=== PATIENT | male | born 1980 | race Caucasian/White ===

== ENCOUNTER 2016-12-08 18:16 | Emergency (ER) | payer MEDICARE ==
[~2016-12-08 18:16] MED LIST: OXYC5TAB72 PO; PARO40TA47 PO; POLY17PO6 PO; SULF1TAB7 PO
[2016-12-08 18:36] VITALS: BP 119/78; PULSE 103; RESP 16; O2SAT 95
--- NOTE | 2016-12-08 21:01 | ED.REPORT ---
HPI-General Illness Date of Service Dec 08, 2016 ED Provider: Dr. Montrell Fuentes M.D. A 36 year old male with a medical history including Crohn's disease, SBO, ulcerative colitis, and methamphetamine use s/p multiple abdominal surgeries including hernia repair with mesh placement presents to the ED with abdominal pain onset a couple of days ago while lifting a freezer. The patient also reports a new abdominal wound at a previous surgical site with intermittent drainage. He can feel a sharp, palpable mass just below the wound, which he believes is his hernia mesh. Nursing Notes Stated Complaint: HERNIA MESH DISCOMFORT Chief Complaint: Skin Rash/Abscess Nursing Notes Reviewed: Yes Allergies: Coded Allergies: morphine (Verified Allergy, Intermediate, Rash, 06/07/16) RASH, NAUSEA Scheduled Paroxetine (Paxil) 40 Mg Tablet 40 MG PO HS Polyethylene Glycol 3350 (Miralax) 17 Gm Powd.pack 17 GM PO DAILY Sulfamethoxazole/Trimeth 800-160 mg (Bactrim DS) 1 Each Tablet 1 TABLET PO BID Scheduled PRN oxyCODONE (oxyCODONE) 5 Mg Tablet 2.5-5 MG PO Q4H PRN PRN For Moderate Pain General Time Seen by MD: 21:01 Chief Complaint Abdominal pain Hx Obtained From: Patient Arrived By: Walk-in Sudden in Onset?: Yes Onset Occurred: 2 days ago ("a couple") Symptom Duration: Since onset Location: : Abdomen Quality: Painful Severity: Current: Moderate Severity: Maximum: Moderate Associated with: Reports: Discharge, Denies: Fever Pertinent Negative: Relieved by nothing Context Related History: Reports Hernia, Reports Psychiatric history Recent Healthcare: No recent doctor visit Similar Sx Previous: No Past Medical History Past Medical History Notes: Seen in ED 05/30/16 for substance abuse (methamphetamines) Seen 04/25/16 in ED for incisional hernia (see CT results) Seen in ED April 07, and 2015 for abd pain, crohns Diagnosis cutaneous phlegmon April 10, discharged on Cipro and Flagyl On the had normal labs, had referral to surgery to be seen April 23 CT Scam 04/07/16 nonspecific thickening of residual sigmoid colon Admitted March 11-2015 for partial small bowel obstruction, chronic abdominal pain, scrotal cellulitis and history of Crohn's - with a small bowel follow-through Gastrografin enema with no evidence of stricturing or 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 Surgical exploration on 06/08 and 08/08 confirmed doesn't have enteric fissula. Past Surgical History Lysis of adhesions Colectomy at age 13 Several other abdominal surgeries "x9": exact details are unknown Hernia repair with mesh at [place] - most recent surgery at the in 2013 Rotator cuff Left thumb fusion for recurrent dislocation Vasectomy Smoking History Current Every Day Smoker Social History Alcohol Use: Denies alcohol use Drug Use: Meth Other Social History: , Local resident Ambulatory Status Independent Review of Systems + Abdominal wound with drainage, palpable abdominal mass Full Review of Systems Constitutional: Denies: Fever GI: Reports: Abdominal pain Complete sys rev & neg: except as marked. Physical Exam Vital Signs Vital Signs Date Time Temp Pulse Resp B/P Pulse Ox O2 Delivery O2 Flow Rate FiO2 12/08/16 18:36 36.6 103 16 119/78 95 Room Air Initial VS: Reviewed Head / Eyes: Atraumatic, Normocephalic ENT: Conjunctiva normal, No scleral icterus Neck: Supple, Full range of motion Skin: Warm, Dry Neurologic: Alert, Oriented, Nonfocal Psychiatric: Mood/affect normal, Behavior normal, Normal thought content General/Constitutional: Awake, Alert ABDOMEN/GI: Anterior abdominal wall surgical scar at midline, another scar above umbilicus transverse to left side. Small punctate lesion at the juncture of these scars, with firm palpable mass in the middle. Area is tender without active drainage, erythema, or induration. abd otherwise nontender Re-Eval/Medical Decision Source of Hx: Old records Time of Eval: 21:00 Patient Status: Condition improved Re-Evaluation/Progress Note: Discussed with patient diagnosis and plan for discharge. Follow-up and return to the ER instructions given. Patient agrees with plan for care and all questions were addressed. Counseled Regarding: Diagnosis, Need for follow-up, When/why to return to ED Discharge & Departure Primary Impression: Visit for wound check Disposition: Home Discharge Condition All VS Reviewed: Yes Condition: Stable Additional Instructions: Does not appear to be infected at present. Drainage is nothing to worry about, you can apply a gauze dressing to prevent it from getting on clothes. Contacted Dr. Jaquez, your surgeon for follow up on this soon. Return if you develop redness or swelling at site. Referrals: Erica Shin MD (PCP) Scribe Attestation Portions of this note were transcribed by Milagro Esquivel. I, Dr. Fuentes, personally performed the history, physical exam, and medical decision-making; I reviewed and confirmed the accuracy of the information in the transcribed note. Signed by: Amy Yusuf, 12/08/2016, 22:13 copies to: Erica Shin MD, Donald L MD Dec 08, 2016 21:01 MILAGRO ESQUIVEL Dec 08, 2016 21:16
== END 2016-12-08 21:27 ==
LOC: SED 18:16
DX: R10.9 Unspecified abdominal pain (principal); X50.0XXA Overexertion from strenuous movement or load, initial encounter; Y93.89 Activity, other specified; Y99.8 Other external cause status; Y92.9 Unspecified place or not applicable; F17.200 Nicotine dependence, unspecified, uncomplicated; F15.10 Other stimulant abuse, uncomplicated; Z87.19 Personal history of other diseases of the digestive system; Z88.5 Allergy status to narcotic agent

== ENCOUNTER 2017-04-06 12:15 | Emergency (ER) | payer MEDICARE ==
[~2017-04-06] VITALS: Ht 188 cm; Wt 113.6 kg
[2017-04-06 12:22] VITALS: BP 125/81; PULSE 104; RESP 18; O2SAT 97
--- NOTE | 2017-04-06 13:51 | ED.REPORT ---
HPI-Abd Pain M Under 41 Date of Service Apr 06, 2017 ED Provider: Danika Crandall History of Present Illness: states has a bowel obstruction, started yesterday. primary care is shan. positive nausea and vomiting yesterday. no diarrhea. last bm tuesday. has had multiple sbo. 05/02 pain Nursing Notes Stated Complaint: ABDOMINAL PAIN Chief Complaint: Male Abdominal Pain Nursing Notes Reviewed: Yes Allergies: Coded Allergies: morphine (Verified Allergy, Intermediate, Rash, 06/07/16) RASH, NAUSEA Scheduled Paroxetine (Paxil) 40 Mg Tablet 40 MG PO HS General Time Seen by MD: 13:37 Chief Complaint Abdominal pain Hx Obtained From: Patient Sudden in Onset?: No Onset Occurred: Yesterday Symptom Duration: Since onset Severity: Current: Pain level 7 out of 10 Past Medical History Past Medical History Notes: Seen in ED 05/30/16 for substance abuse (methamphetamines) Seen 04/25/16 in ED for incisional hernia (see CT results) Seen in ED April 07, , and 2015 for abd pain, crohns Diagnosis cutaneous phlegmon April 10, discharged on Cipro and Flagyl On the had normal labs, had referral to surgery to be seen April 23 CT Scam 04/07/16 nonspecific thickening of residual sigmoid colon Admitted March 11-2015 for partial small bowel obstruction, chronic abdominal pain, scrotal cellulitis and history of Crohn's - with a small bowel follow-through Gastrografin enema with no evidence of stricturing or active 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 Surgical exploration on 06/08 and 08/08 confirmed doesn't have enteric fissula. 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, no work or school on disability 04/06/2017 Ambulatory Status Independent Review of Systems Basic Review of Systems Eyes: Vision NL, No discharge Skin: No bruising, No rash, No itch Psychiatric: Normal thought content Physical Exam Initial Vital Signs Vital Signs (First) Date Time Temp Pulse Resp B/P Pulse Ox O2 Delivery O2 Flow Rate FiO2 04/06/17 12:22 37.2 104 18 125/81 97 Room Air Initial VS: Reviewed, Vital signs normal Head / Eyes: Atraumatic, Normocephalic, PERRL ENT: Mucous membranes moist, Conjunctiva normal, No scleral icterus Neck: Supple, Non-tender, Full range of motion Lymphatic: No lymphadenopathy Extremities: Vascular intact, Neuro intact, No swelling, No tenderness Skin: Warm, Dry, No cyanosis Neurologic: Alert, Oriented, Nonfocal Psychiatric: Mood/affect normal, Behavior normal, Normal thought content General/Constitutional: Awake, Alert, No acute distress, Well appearing, Well developed, Well hydrated Respiratory / Chest: Atraumatic, Breath sounds NL, Breath sounds = bilat, No respiratory distress, No rales, No rhonchi Cardiovascular: Heart rate NL, Regular rhythm, Heart sounds NL, No gallop Abdomen: Atraumatic, Soft, No guarding, No rebound, BS normoactive, No distention Tenderness/Guarding/Rebound: Positive: Tender diffuse Back: Atraumatic, Inspection NL, Full range of motion, Painless range of motion Interpretation & Diagnostics Interpretation & Diagnostics: INDICATIONS: abd pain TECHNIQUE: After the administration of oral and intravenous contrast, 5 mm thick sections acquired from the diaphragms to the symphysis. 5 mm thick coronal and sagittal reformats were performed. For radiation dose reduction, the following was used: automated exposure control, adjustment of mA and/or kV according to patient size. COMPARISON: [facility], CT, CT ABD PELVIS W CON, 06/07/2016, 17:18. [facility], CT, CT ABD PELVIS W CON, 04/25/2016, 11:35. FINDINGS: Image quality: Diagnostic. ABDOMEN: Lung bases: Minimal scar versus atelectasis within the bilateral lung bases is present. The heart is normal in size without a pericardial effusion. Solid organs: The liver, spleen, adrenals, kidneys, and pancreas are unchanged. There is no hydronephrosis or surrounding solid organ inflammation. Peritoneum and bowel: The stomach and duodenum are unchanged. There is a small moderate-sized duodenal diverticulum involving the 2nd portion of the duodenum, which may be slightly larger on the current study. Otherwise, the imaged small bowel loops are nondilated. Postoperative changes involving the distal colon are present, unchanged. Moderate residual stool is seen within the colon. Laxity along the anterior abdominal wall is similar to prior studies. No free fluid, loculated fluid collection or free air is evident. Nodes and vessels: Numerous small mesenteric lymph nodes are identified, similar in size to the prior exam. No retroperitoneal lymph nodes are present. There is no pathologic lymphadenopathy. Aorta and inferior vena cava are normal in caliber. Bones: Image osseous structures are age-appropriate without acute fracture or suspicious osseous lesion. PELVIS: Genitourinary: Bladder wall thickness is normal. The prostate is not enlarged. Miscellaneous: No inguinal hernias or adenopathy. No free fluid, loculated fluid collection or free air is evident. Bones: No suspicious bony lesions. No acute pelvic fractures are identified. No suspicious osseous lesions are present. There mild degenerative changes involving the right hip. IMPRESSION: 1. Postoperative changes of the colon. No bowel obstruction. 2. Scattered small mesenteric lymph nodes are of doubtful significance. However, please correlate clinically to exclude the possibility of mesenteric adenitis. 3. Duodenal diverticulum is of doubtful significance. No surrounding inflammation is evident. Dictated by: Kofi Mayo M.D. on 04/06/2017 at 15:42 Approved by: Kofi Mayo M.D. on 04/06/2017 at 15:48 Lab Results Interpretation Result Diagram: 04/06/17 1330 04/06/17 1330 Test 04/06/17 13:30 04/06/17 16:15 White Blood Count 6.5th/mm3 (3.8-10.1) Red Blood Count 4.73mil/mm3 (4.40-5.80) Hemoglobin 14.7g/dL (13.8-17.2) Hematocrit 44.1% (41.0-50.0) Mean Corpuscular Volume 93.2fL (81-100) Mean Corpuscular Hemoglobin 31.1pg (27.0-35.0) Mean Corpuscular Hemoglobin Concent 33.3% (32.0-37.0) Red Cell Distribution Width 12.8% (12.3-15.4) Platelet Count 268bil/L (150-400) Neutrophils (%) (Auto) 61.1% (40-74) Lymphocytes (%) (Auto) 30.5% (14-46) Monocytes (%) (Auto) 7.0% (4-12) Eosinophils (%) (Auto) 0.9% (0-5) Basophils (%) (Auto) 0.3% (0-3) Hold Purple Top Tube Received (Received) Hold Blue Top Tube Received (Received) Sodium Level 137mEq/L (134-144) Potassium Level 4.3mEq/L (3.5-5.2) Chloride Level 100mEq/L (97-108) Carbon Dioxide Level 25mmol/L (18-29) Blood Urea Nitrogen 10mg/dL (6-20) Creatinine 1.03mg/dL (0.76-1.27) Estimat Glomerular Filtration Rate 87mL/min (>59) Glucose Level 111mg/dL (60-99) Lactic Acid Level 1.9mmol/L (0.4-2.0) Calcium Level 9.3mg/dL (8.5-10.1) Total Bilirubin 0.3mg/dL (0.0-1.2) Aspartate Amino Transf (AST/SGOT) 26U/L (0-50) Alanine Aminotransferase (ALT/SGPT) 24U/L (0-44) Alkaline Phosphatase 60U/L (25-150) Total Protein 7.2g/dL (6.4-8.4) Albumin 4.2g/dL (3.4-5.0) Hold [place] Top Tube Received (Received) Hold Little Top Tube Received (Received) Hold Urine Received (Received) Lab Results Interpretation: urine is negative, u tox positive for meth and amp X-Ray Abdominal Interpretation INDICATIONS: abd pain TECHNIQUE: One view chest and two views of the abdomen were acquired. COMPARISON: [facility], CR, XR ABD ACUTE SERIES 3VW, 06/13/2016, 9:06. [facility], CR, XR ABD ACUTE SERIES 3VW, 06/08/2016, 9:58. FINDINGS: Surgical changes and devices: None. Chest: Lungs are clear. Heart size is normal. No pleural effusions. No pneumoperitoneum. A subtle left rib deformity is unchanged since prior studies, compatible with a healed rib fracture. Minimal scarring/elevation of the left diaphragm is noted, unchanged. Abdomen: A few borderline prominent air-filled loops of small bowel are seen within the right jeffry-abdomen, demonstrating air-fluid levels. Air and stool are seen within the colon. No suspicious calcifications. The Visualized solid organ contours appear normal. IMPRESSION: 1. Right abdominal ileus. A complete bowel obstruction is not evident. If the patient's symptoms persist, followup imaging is recommended. 2. Negative chest. Dictated by: Kofi Mayo M.D. on 04/06/2017 at 14:48 Approved by: Kofi Mayo M.D. on 04/06/2017 at 14:50 Re-Eval/Medical Decision Med Decision/Clinical Course 37 year old with ongoing abd pain and polysubstance abuse presents for abd pain which he relates to SBO. X-ray does not identify any abnormalities. CT looks good, no SBO, no abscess identified. Patient provided .5 of dilaulid with request for additional pain medication in 10 to 15 minutes after medication provided. Exam is reassuring Patient Discharge & Departure Primary Impression: Abdominal pain Abdominal location: generalized Qualified Code: R10.84 - Generalized abdominal pain Disposition: Home Patient Instructions: Acute Abdominal Pain (ED) Additional Instructions: Your labs are normal. The x-ray is normal. The CT does not identify any abnormalities. Please follow with Dr. Shin for pain control. At this time, there is no sign of a small bowel obstruction or abscess formation. Can use zofran if needed for nausea. Referrals: Erica Shin MD (PCP) EDSupervising Provider for APC: Christopher Hyatt MD copies to: Erica Shin MD, Sue ARNP Apr 06, 2017 13:51
[2017-04-06] MEDS ORDERED: HYDROmorphone 0.5 mg/0.5 mL iSecure Syringe IVPUSH ONE (14:00)
[2017-04-06] MEDS ORDERED: 0.9% Sodium Chloride 1,000 ML IV ONE (14:00)
[2017-04-06 14:14] LABS: BASOPHILS % (AUTO) 0.3 % (0-3); EOSINOPHILS % (AUTO) 0.9 % (0-5); Mean Corpuscular Hemoglobin 31.1 pg (27.0-35.0); Mean Corpuscular Volume 93.2 fL (81-100); NEUTROPHILS % (AUTO) 61.1 % (40-74); Platelet Count 268 bil/L (150-400)
--- NOTE | 2017-04-06 14:51 | DRSVH ---
PROCEDURE: X-RAY ACUTE ABDOMINAL SERIES ([id number]) INDICATIONS: abd pain TECHNIQUE: One view chest and two views of the abdomen were acquired. COMPARISON: [facility], CR, XR ABD ACUTE SERIES 3VW, 06/13/2016, 9:06. [facility], CR, XR ABD ACUTE SERIES 3VW, 06/08/2016, 9:58. FINDINGS: Surgical changes and devices: None. Chest: Lungs are clear. Heart size is normal. No pleural effusions. No pneumoperitoneum. A subtl e left rib deformity is unchanged since prior studies, compatible with a healed rib fracture. Minima l scarring/elevation of the left diaphragm is noted, unchanged. Abdomen: A few borderline prominent air-filled loops of small bowel are seen within the right jeffry-ab domen, demonstrating air-fluid levels. Air and stool are seen within the colon. No suspicious calci fications. The Visualized solid organ contours appear normal. IMPRESSION: 1. Right abdominal ileus. A complete bowel obstruction is not evident. If the patient's symptoms p ersist, followup imaging is recommended. 2. Negative chest. Dictated by: Kofi Mayo M.D. on 04/06/2017 at 14:48 Approved by: Kofi Mayo M.D. on 04/06/2017 at 14:50
--- NOTE | 2017-04-06 15:50 | DRSVH ---
PROCEDURE: CT ABDOMEN AND PELVIS WITH CONTRAST ([id number]) INDICATIONS: abd pain TECHNIQUE: After the administration of oral and intravenous contrast, 5 mm thick sections acquired from the diap hragms to the symphysis. 5 mm thick coronal and sagittal reformats were performed. For radiation do se reduction, the following was used: automated exposure control, adjustment of mA and/or kV accordi ng to patient size. COMPARISON: [facility], CT, CT ABD PELVIS W CON, 06/07/2016, 17:18. [facility], CT, CT ABD PELVIS W CON, 04/25/2016, 11:35. FINDINGS: Image quality: Diagnostic. ABDOMEN: Lung bases: Minimal scar versus atelectasis within the bilateral lung bases is present. The heart is normal in size without a pericardial effusion. Solid organs: The liver, spleen, adrenals, kidneys, and pancreas are unchanged. There is no hydronep hrosis or surrounding solid organ inflammation. Peritoneum and bowel: The stomach and duodenum are unchanged. There is a small moderate-sized duoden al diverticulum involving the 2nd portion of the duodenum, which may be slightly larger on the curren t study. Otherwise, the imaged small bowel loops are nondilated. Postoperative changes involving th e distal colon are present, unchanged. Moderate residual stool is seen within the colon. Laxity hcarlie ng the anterior abdominal wall is similar to prior studies. No free fluid, loculated fluid collectio n or free air is evident. Nodes and vessels: Numerous small mesenteric lymph nodes are identified, similar in size to the prior exam. No retroperitoneal lymph nodes are present. There is no pathologic lymphadenopathy. Aorta a nd inferior vena cava are normal in caliber. Bones: Image osseous structures are age-appropriate without acute fracture or suspicious osseous lesi on. PELVIS: Genitourinary: Bladder wall thickness is normal. The prostate is not enlarged. Miscellaneous: No inguinal hernias or adenopathy. No free fluid, loculated fluid collection or free air is evident. Bones: No suspicious bony lesions. No acute pelvic fractures are identified. No suspicious osseous lesions are present. There mild degenerative changes involving the right hip. IMPRESSION: 1. Postoperative changes of the colon. No bowel obstruction. 2. Scattered small mesenteric lymph nodes are of doubtful significance. However, please correlate c linically to exclude the possibility of mesenteric adenitis. 3. Duodenal diverticulum is of doubtful significance. No surrounding inflammation is evident. Dictated by: Kofi Mayo M.D. on 04/06/2017 at 15:42 Approved by: Kofi Mayo M.D. on 04/06/2017 at 15:48
[2017-04-06 15:58] VITALS: BP 108/62; PULSE 85; RESP 15; O2SAT 99
[2017-04-06 16:18] VITALS: BP 108/62; PULSE 85; RESP 15; O2SAT 99
== END 2017-04-06 16:19 | disposition home or self-care (01) ==
LOC: EDUNIT# 12:15 → SED 12:15 → EDBD 12:15 → SED 16:19
DX: R10.84 Generalized abdominal pain (principal); F17.210 Nicotine dependence, cigarettes, uncomplicated; F15.10 Other stimulant abuse, uncomplicated; F41.9 Anxiety disorder, unspecified; Z87.19 Personal history of other diseases of the digestive system; Z88.5 Allergy status to narcotic agent
CPT/HCPCS: 36415; 74022; 74177; 80053; 83605; 85025; 96374; 96375; 99285; J1170; J1885; J7030; Q9967

== ENCOUNTER 2017-04-13 12:58 | Emergency (ER) | payer MEDICARE ==
[~2017-04-13] VITALS: Ht 188 cm; Wt 113.6 kg
[~2017-04-13 12:58] MED LIST changes: -OXYC5TAB72 PO; -POLY17PO6 PO; -SULF1TAB7 PO
[2017-04-13 13:28] VITALS: BP 121/77; PULSE 90; RESP 16; O2SAT 97
--- NOTE | 2017-04-13 14:30 | ED.REPORT ---
HPI-Rash / Abscess Date of Service Apr 13, 2017 ED Provider: David Matthew PA-C Michelle is a 37-year-old male without pertinent medical history presenting for a chief complaint of a abscess on the top of his head. Patient states is been present off-and-on for years. States that typically responds well to Bactrim. He has not had it drained previously. Complains of pain and tenderness. Nursing Notes Stated Complaint: POSS INFECTION Chief Complaint: Skin Rash/Abscess Nursing Notes Reviewed: Yes Allergies: Coded Allergies: morphine (Verified Allergy, Intermediate, Rash, 04/13/17) RASH, NAUSEA Scheduled Paroxetine (Paxil) 40 Mg Tablet 40 MG PO HS General Time Seen by MD: 14:20 Chief Complaint Abscess Past Medical History Past Medical History Notes: Seen in ED 05/30/16 for substance abuse (methamphetamines) Seen 04/25/16 in ED for incisional hernia (see CT results) Seen in ED April 07, , and 2015 for abd pain, crohns Diagnosis cutaneous phlegmon April 10, discharged on Cipro and Flagyl On the had normal labs, had referral to surgery to be seen April 23 CT Scam 04/07/16 nonspecific thickening of residual sigmoid colon Admitted March 11-2015 for partial small bowel obstruction, chronic abdominal pain, scrotal cellulitis and history of Crohn's - with a small bowel follow-through Gastrografin enema with no evidence of stricturing or active 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 Montrell Mann Past Medical History Crohn's disease Small bowel obstruction h/o ulcerative colitis nephrolithiasis Hernia -murmur since arthritis depression and anxiety Chronically draining abdominal wall repair 08/05/16. Surgical exploration on 06/08 and 08/08 confirmed doesn't have enteric fissula. Past Surgical History Lysis of adhesions Colectomy at age 13 Several other abdominal surgeries "x9": exact details are unknown Hernia repair with mesh at [place] - most recent surgery at the in 2013 Rotator cuff Left thumb fusion for recurrent dislocation Vasectomy Smoking History Current Every Day Smoker Social History Alcohol Use: Denies alcohol use Drug Use: Meth Other Social History: , Local resident Occupation lives by self, no work or school on disability 04/06/2017 Ambulatory Status Independent Review of Systems Review of Systems Note: Negative unless stated otherwise in history of present illness Physical Exam General: Well appearing, well developed, well nourished, no acute distress. Head: 2 cm area of swelling, tenderness, alopecia with fluctuance near the crown of the scalp. No associated cellulitis. Atraumatic, normocephalic. Eyes: No scleral icterus or injection. No discharge. Vision grossly intact. ENT: Voice clear, hearing grossly intact. Respiratory: No respiratory distress, no increased work of breathing. Speaks in complete sentences. Skin: Warm and dry. Neurological: Grossly nonfocal. Psychological: alert and oriented. Speech appropriate, linear and logical. Behavior appropriate. Initial Vital Signs Vital Signs (First) Date Time Temp Pulse Resp B/P Pulse Ox O2 Delivery O2 Flow Rate FiO2 04/13/17 13:28 37.4 90 16 121/77 97 Room Air Normal Procedures Incision & Drainage Abscess Procedure Performed by: Allied health pract Consent / Setup / Site Prep: Consent from patient, Hand hygiene observed Location of Abscess: [place] of the scalp. Skin Preparation Agent: Domenicaurclens Local Anesthesia: Lidocaine w epi 1% Incised Abscess with Scalpel: #11 Pus Drained: Medium, Purulent discharge Irrigation: No Post-Procedure / Complications: Packing placed, Culture obtained, Gram stain ordered, Dressing applied, No complications, Condition improved, Tolerated procedure well, Patient stable Re-Eval/Medical Decision Med Decision/Clinical Course Otherwise healthy 37-year-old male presents with an abscess to crown of the scalp. Reports reports it has been there intermittently for several years, typically reduced in size after taking Bactrim. Planes of pain and tenderness. Denies comorbidities. Abscess incised and drained, packing placed. Cultures sent. No indication for antibiotics. Advised regarding wound care, primary care follow-up, provided emergency precautions. Patient verbalizes understanding of and content to the plan. Discharge & Departure Impression: Primary Impression: Abscess Disposition: Home Discharge Condition All VS Reviewed: Yes Condition: Stable Patient Instructions: Abscess Incision and Drainage (DC) Additional Instructions: Evaluation for an abscess in the emergency department consists of history and physical elevation. This appears to be a localized infection, with little involvement of the surrounding skin. I believe UR stable and safe to be discharged. We have drained the abscess and taken samples for culture. I do not believe this will require antibiotics, but if it fails to resolve in a timely fashion, we will know what is causing it. Keep it covered up for about a day. After that you could wash with soap and water as you normally do. Keep the wound covered with antibiotic ointment and dressing. If the packing does not fall out before then, pull it out about 3 days. Do not submerge the wound as in swimming or soaking in a tub until it is completely healed. The pain is best treated with 400 mg of ibuprofen (Advil, Motrin) every 6 hours , or 1000 mg of acetaminophen (Tylenol) every 6 hours. These drugs can be taken at the same time for more severe pain. Follow-up with your primary care provider if you have any further concerns. Return to emergency department for any new or worsening symptoms including increasing redness, swelling or the appearance of pus. Referrals: Erica Shin MD (PCP) EDSupervising Provider for APC: Jesus Manuel Matos DO copies to: Erica Shin MD, Seth PA-C Apr 13, 2017 14:30
[2017-04-13 15:22] VITALS: BP 121/77; PULSE 90; RESP 16; O2SAT 97
[2017-04-14] MEDS ORDERED: NAPR500T5 PO (11:23)
[2017-04-14] MEDS ORDERED: SULF1TAB7 PO (11:23)
== END 2017-04-13 15:22 | disposition home or self-care (01) ==
LOC: SED 12:58
DX: L02.811 Cutaneous abscess of head [any part, except face] (principal); B95.61 Methicillin susceptible Staphylococcus aureus infection as the cause of diseases classified elsewhere; K50.90 Crohn's disease, unspecified, without complications; F32.9 Major depressive disorder, single episode, unspecified; F41.9 Anxiety disorder, unspecified; F17.200 Nicotine dependence, unspecified, uncomplicated; Z88.5 Allergy status to narcotic agent

== ENCOUNTER 2017-04-14 10:06 | Emergency (ER) | payer MEDICARE ==
[~2017-04-14] VITALS: Ht 188 cm; Wt 113.0 kg
[2017-04-14 10:16] VITALS: BP 129/80; PULSE 79; RESP 18; O2SAT 97
--- NOTE | 2017-04-14 10:23 | ED.REPORT ---
HPI-General Illness Date of Service Apr 14, 2017 ED Provider: Jesus Manuel Matos DO Patient is a 37 year old male who was seen yesterday to have an abscess on the back of his had drained who presents today complaining of increasing pain. Associated symptoms include pain that radiates into the left side of his neck and shoulder and nausea. He denies fever. The patient reports that the abscess has intermittently appeared for years but he has never had it drained before yesterday. The wound was packed yesterday but he states that the packing came out today. Nursing Notes Stated Complaint: INFECTION Chief Complaint: General Complaint Nursing Notes Reviewed: Yes Allergies: Coded Allergies: morphine (Verified Allergy, Intermediate, Rash, 04/13/17) RASH, NAUSEA Scheduled Paroxetine (Paxil) 40 Mg Tablet 40 MG PO HS Sulfamethoxazole/Trimeth 800-160 mg (Bactrim DS) 1 Each Tablet 1 TABLET PO BID Scheduled PRN Naproxen (Naproxen) 500 Mg Tablet.dr 500 MG PO BID PRN PRN For Pain General Time Seen by MD: 10:22 Chief Complaint Other (abscess) Hx Obtained From: Patient Arrived By: Walk-in Sudden in Onset?: No Onset Occurred: More than a week ago... (>6 months) Symptom Duration: Intermittent Location: : Head Quality: Painful Severity: Current: Moderate Recent Healthcare: Recent doctor visit Similar Sx Previous: Yes Past Medical History Past Medical History Notes: Seen in ED 05/30/16 for substance abuse (methamphetamines) Seen 04/25/16 in ED for incisional hernia (see CT results) Seen in ED April 07, , and 2015 for abd pain, crohns Diagnosis cutaneous phlegmon April 10, discharged on Cipro and Flagyl On the had normal labs, had referral to surgery to be seen April 23 CT Scam 04/07/16 nonspecific thickening of residual sigmoid colon Admitted March 11-2015 for partial small bowel obstruction, chronic abdominal pain, scrotal cellulitis and history of Crohn's - with a small bowel follow-through Gastrografin enema with no evidence of stricturing or active Crohn's 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 Montrell Mann Past Medical History Crohn's disease Small bowel obstruction h/o ulcerative colitis nephrolithiasis Hernia -murmur since arthritis depression and anxiety Chronically draining abdominal wall repair 08/05/16. Surgical exploration on 06/08 and 08/08 confirmed doesn't have enteric fissula. Past Surgical History Lysis of adhesions Colectomy at age 13 Several other abdominal surgeries "x9": exact details are unknown Hernia repair with mesh at [place] - most recent surgery at the in 2013 Rotator cuff Left thumb fusion for recurrent dislocation Vasectomy Smoking History Current Every Day Smoker Social History Alcohol Use: Denies alcohol use Drug Use: Meth Other Social History: , Local resident Occupation lives by self, no work or school on disability 04/06/2017 Ambulatory Status Independent Review of Systems Full Review of Systems Constitutional: Denies: Chills, Fever Respiratory: Denies: Non-productive cough, Shortness of breath GI: Reports: Nausea Musculoskeletal: Reports: Extremity pain (left shoulder), Neck pain Skin: Denies Itching, Denies Rash, Denies Swelling Complete sys rev & neg: except as marked. Physical Exam Vital Signs Vital Signs Date Time Temp Pulse Resp B/P Pulse Ox O2 Delivery O2 Flow Rate FiO2 04/14/17 11:40 36.5 74 16 127/85 99 Room Air 04/14/17 10:16 37.0 79 18 129/80 97 Room Air Initial VS: Reviewed General/Constitutional: Awake, Alert Head / Eyes: Normocephalic, PERRL, EOMI 2cm fluctuant area of the left parieto occipital area with lymphadenopathy Neck: Atraumatic, Supple, No meningismus, Full range of motion Respiratory / Chest: Atraumatic, No respiratory distress Back: Atraumatic, Full range of motion Skin: Atraumatic, Color NL, No rash, Warm, Dry Neurologic: Oriented X3, Speech NL, No motor deficits, No sensory deficits Psychiatric: Affect NL, Mood NL Re-Eval/Medical Decision Med Decision/Clinical Course Patient reports worsening of his symptoms, it seems that he has lymphadenopathy without superimposed cellulitis or severe abscess. The area in question is approximately 2 cm the packing had fallen out, and he does continue to have purulent drainage. 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 Return and follow-up precautions given. Time of Eval: 11:15 Re-Evaluation/Progress Note: Wound was repacked by the [facility]. Time of Eval: 11:27 Re-Evaluation/Progress Note: Discussed plan for discharge. Patient understands and agrees to plan. All questions were addressed. Counseled Regarding: Diagnosis, Lab results, Need for follow-up, When/why to return to ED Discharge & Departure Primary Impression: Abscess Disposition: Home Discharge Condition All VS Reviewed: Yes Condition: Stable Additional Instructions: Take Bactrim, naproxen, Tylenol. Leave the wound packing in. Return in 48 hours for wound reevaluation. Return to the ER sooner if you develop a high fever, stiffness in your neck, lethargy, or other concerns Referrals: Erica Shin MD (PCP) [place] Attestation Portions of this note were transcribed by Kena Estrada. I, Dr. Ken Coy personally performed the history, physical exam and medical decision-making; I reviewed and confirmed the accuracy of the information in the transcribed note. Signed by: Amy Myers, 04/14/17 and 1110. copies to: Erica Shin MD, Timothy S DO Apr 14, 2017 10:23 Nette Estrada Apr 14, 2017 10:44
[2017-04-14] MEDS ORDERED: Lidocaine-Epi-Tetracaine Solution 3 mL Syringe TOPICAL ONE (10:45)
[2017-04-14] MEDS ORDERED: Trimethoprim-Sulfa 160 mg-800 mg Tablet PO ONE (10:45)
[2017-04-14] MEDS ORDERED: NAPR500T5 PO (11:23)
[2017-04-14] MEDS ORDERED: SULF1TAB7 PO (11:23)
[2017-04-14 11:40] VITALS: BP 127/85; PULSE 74; RESP 16; O2SAT 99
== END 2017-04-14 11:41 | disposition home or self-care (01) ==
LOC: SED 10:06
DX: L02.811 Cutaneous abscess of head [any part, except face] (principal); K50.90 Crohn's disease, unspecified, without complications; F41.8 Other specified anxiety disorders; F17.200 Nicotine dependence, unspecified, uncomplicated; Z88.5 Allergy status to narcotic agent